=== PATIENT | female | born 1990 | race African-American/Black ===

== ENCOUNTER 2016-11-21 07:08 | Emergency (ER) | payer MEDICAID ==
[~2016-11-21] VITALS: Ht 167.6 cm; Wt 44.0 kg
[2016-11-21 07:24] VITALS: BP 106/71
[2016-11-21] MEDS ORDERED: IBUPROFEN 800MG TABLET PO ONE (08:00)
[2016-11-21] MEDS ORDERED: HYDROCODONE/ACETAMINOPHEN 10/325MG TABLET PO ONE (08:00)
== END 2016-11-21 08:37 | disposition home or self-care (01) ==
LOC: ER 07:44
DX: L03.039 Cellulitis of unspecified toe (principal); L60.0 Ingrowing nail
CPT/HCPCS: 99283; X7700

== ENCOUNTER 2016-11-27 06:43 | Emergency (ER) | payer MEDICAID ==
[~2016-11-27] VITALS: Ht 167.6 cm; Wt 57.0 kg
[2016-11-27 06:47] VITALS: BP 113/62
[2016-11-27] MEDS ORDERED: BACITRACIN ZINC OINT UDPKT TOP ONE (07:15)
[2016-11-27] MEDS ORDERED: IBUPROFEN 600MG TABLET PO ONE (08:00)
== END 2016-11-27 08:37 | disposition home or self-care (01) ==
LOC: ER 06:43
DX: L03.031 Cellulitis of right toe (principal); J45.909 Unspecified asthma, uncomplicated
CPT/HCPCS: 10060; 99283; Z7610

== ENCOUNTER 2017-09-24 11:55 | Emergency (ER) | payer MEDICAID ==
[~2017-09-24] VITALS: Ht 167.6 cm; Wt 86.0 kg
[2017-09-24 15:09] VITALS: BP 147/73
[2017-09-24 15:36] LABS: CLARITY URINE CLEAR (CLEAR); COLOR URINE YELLOW (YELLOW); KETONES URINE NEGATIVE (NEGATIVE); LEUKOCYTE ESTERASE URINE 3+ (NEGATIVE); NITRITE URINE NEGATIVE (NEGATIVE); OCCULT BLOOD URINE NEGATIVE (NEGATIVE); PROTEIN URINE NEGATIVE (NEGATIVE); SPECIFIC GRAVITY URINE 1.016 (1.005-1.030)
== END 2017-09-24 18:05 | disposition left against medical advice (07) ==
LOC: ER 12:20
DX: J02.9 Acute pharyngitis, unspecified (principal); Z53.21 Procedure and treatment not carried out due to patient leaving prior to being seen by health care provider
CPT/HCPCS: 81001; 81025